=== PATIENT | female | born 1990 | race American Indian/Alaskan Native ===

== ENCOUNTER 2020-08-23 10:12 | Emergency (ER) | payer MEDICAID ==
--- NOTE | 2020-08-23 10:34 | EDM.PDOC ---
ED HPI GENERAL MEDICAL PROBLEM - General Chief Complaint: Lower Extremity Injury/Pain Stated Complaint: LT KNEE INJURY Time Seen by Provider: 08/23/20 10:32 - History of Present Illness INITIAL COMMENTS - FREE TEXT/NARRATIVE: 29-year-old female presents the emergency room with left knee pain. Yesterday the patient slipped on some ice. Her right leg went out and her left knee buckled inward she has medial pain. Patient has no prior history of knee problems. Patient denies . Patient denies any other complaint with this most unfortunate event. Patient has no significant medical problems. - Related Data Allergies Allergy/AdvReac Type Severity Reaction Status Date / Time No Known Allergies Allergy Verified 08/23/20 10:25 Home Meds: Home Meds Naproxen 500 mg PO BID #20 tablet 08/23/20 [Rx] Past Medical History - Past Health History Medical/Surgical History: Denies Medical/Surgical History Social & Family History - Family History Family Medical History: No Pertinent Family History - Tobacco Use Tobacco Use Status *Q: Never Tobacco User - Recreational Drug Use Recreational Drug Use: No Review of Systems - Review of Systems Review Of Systems: See Below Constitutional: Reports: No Symptoms Respiratory: Reports: No Symptoms Cardiovascular: Reports: No Symptoms GI/Abdominal: Reports: No Symptoms Genitourinary: Reports: No Symptoms ED EXAM, GENERAL - Physical Exam Exam: See Below Exam Limited By: No Limitations General Appearance: Alert, No Apparent Distress, Other (Her left knee is swollen medially and she has discomfort with any sort of motion with it) Respiratory/Chest: No Respiratory Distress, Lungs Clear, Normal Breath Sounds Cardiovascular: Regular Rate, Rhythm, No Edema, No Murmur Extremities: Other (Patient her left knee shows some swelling of the medial aspect of her knee she has joint line tenderness on the medial aspect examination of her knee is difficult because of swelling and discomfort at this point but gentle maneuvers distracted medial joint compartment cause significant discomfort. She has no pain along the lateral aspect of her knee as well as the posterior lateral portion of her knee. The patella itself does not appear to be tender. No other lower extremity abnormalities noted neurovascular status of the leg is normal.) Course - Vital Signs Last Recorded V/S: Last Vital Signs Temp 36.4 C 08/23/20 10:21 Pulse 77 08/23/20 10:21 Resp 16 12/24/20 10:21 BP 116/70 08/23/20 10:21 Pulse Ox 99 08/23/20 10:21 - Orders/Labs/Meds Orders: Active Orders 24 hr Category Date Time Status Durable Medical Equipment for Discharge [DME for Oth 08/23/20 12:46 Ordered Discharge] [COMM] Stat Meds: Medications Discontinued Medications Generic Name Dose Route Start Last Admin Trade Name Quan PRN Reason Stop Dose Admin Ketorolac Tromethamine 30 mg 08/23/20 12:48 08/23/20 13:01 Toradol IM 08/23/20 12:49 30 mg ONETIME ONE Administration - Re-Assessments/Exams Free Text/Narrative Re-Assessment/Exam: 08/23/20 13:05 X-rays of the of the knee is unremarkable. She has an area of hyperlucency next to the intercondylar prominence on the tibia medial aspect. I did discuss this with radiology they do not feel this is anything acute and report the x-ray is no acute fracture dislocation some soft tissue swelling. I discussed this with the patient we will give her a shot of Toradol for discomfort and then give her a prescription for Naprosyn 500 twice daily with meals to start tonight. She is placed in a knee immobilizer and given crutches. She will follow up with the hospital clinic after the first of the year. MRI evaluation may be indicated. Departure - Departure Time of Disposition: 13:07 Disposition: Home, Self-Care 01 Clinical Impression: Left knee injury - Discharge Information Instructions: How to Use a Knee Immobilizer, [id number], Crutch Use, Adult, [id number] Referrals: PCP,Not In Area [Primary Care Provider] - Forms: ED Department Discharge Additional Instructions: Return to the emergency room with any questions problems or worsening symptoms. Use the crutches and the knee immobilizer at all times until reevaluated. You have been started on Naprosyn. Do not take with ibuprofen. Take this 1 twice daily with your morning and evening meals. Follow-up in the hospital clinic shortly after the first of the year. Call on Thursday to schedule an appointment. [phone] Sepsis Event Note (ED) - Evaluation Sepsis Screening Result: No Definite Risk - Focused Exam Vital Signs: Vital Signs Temp Pulse Resp BP Pulse Ox 08/23/20 10:21 36.4 C 77 16 116/70 99 - My Orders Last 24 Hours: My Active Orders 08/23/20 12:46 Durable Medical Equipment for Discharge [DME for Discharge] [COMM] Stat - Assessment/Plan Last 24 Hours: My Active Orders 08/23/20 12:46 Durable Medical Equipment for Discharge [DME for Discharge] [COMM] Stat
--- NOTE | 2020-08-23 12:33 | CR ---
Left knee: AP, lateral and sunrise patellar views of the left knee were obtained. Comparison: No previous knee exam is available. Findings: Medial and lateral joint compartments are maintained in height. Slight soft tissue swelling is noted medially within the knee. No joint effusion is seen. No definite fracture or other bony abnormality is appreciated. Impression: 1. Soft tissue swelling medially. 2. No acute bony abnormality is appreciated. 3. If MCL injury needs to be excluded, MRI study is then recommended. Diagnostic code #2
[2020-08-23] MEDS ORDERED: Ketorolac 30 MG/ML SDV IM ONE (12:48)
== END 2020-08-23 13:37 | disposition home or self-care (01) ==
LOC: JD.ED 10:12
DX: S89.92XA Unspecified injury of left lower leg, initial encounter (principal); W00.0XXA Fall on same level due to ice and snow, initial encounter
CPT/HCPCS: 73562; 96372; 99283; J1885

== ENCOUNTER 2021-04-10 13:45 | Emergency (ER) | payer MEDICAID ==
[2021-04-10] MEDS ORDERED: Ketorolac 30 MG/ML SDV IM ONE (14:18)
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
--- NOTE | 2021-04-10 16:56 | CR ---
Chest and left ribs: Frontal view of the chest was obtained as well as 3 views of the left ribs. Comparison: No previous rib study or chest x-ray. Heart size and mediastinum are normal. Lungs are clear with no acute parenchymal change. No pneumothorax is seen. Mild scoliosis is noted within the spine. Rib fracture is seen within the left ninth rib which is slightly displaced. No additional rib abnormality is appreciated. Impression: 1. Left ninth rib fracture which is mildly displaced. 2. Slight scoliosis within the spine. 3. Nothing acute is otherwise seen on chest x-ray. Diagnostic code #3
== END 2021-04-10 16:13 | disposition home or self-care (01) ==
LOC: JD.ED 13:45
DX: S22.31XA Fracture of one rib, right side, initial encounter for closed fracture (principal); W18.39XA Other fall on same level, initial encounter
CPT/HCPCS: 71101; 96372; 99283; J1885

== ENCOUNTER 2021-05-17 11:22 | Emergency (ER) | payer MEDICAID ==
--- NOTE | 2021-05-17 11:58 | EDM.PDOC ---
ED HPI GENERAL MEDICAL PROBLEM - General Chief Complaint: General Stated Complaint: FATIGUE,DIZZY Time Seen by Provider: 05/17/21 11:34 Source of Information: Reports: Patient History Limitations: Reports: No Limitations - History of Present Illness INITIAL COMMENTS - FREE TEXT/NARRATIVE: 30-year-old female presents the emergency department with complaints of fever, chills, nausea, vomiting, fatigue, generalized weakness, dizziness, and loss of sense of taste and smell that started last evening. Patient states that one of her coworkers tested positive for Covid and she developed the symptoms last night and was told by her employer to come into the hospital to be tested. She states she did have her Covid vaccinations with the last 1 being within the last couple of months she does not remember the specific date and she believes it was the [employer] vaccine. She states she is otherwise healthy. Prior to last evening she had been feeling well. - Related Data Allergies Allergy/AdvReac Type Severity Reaction Status Date / Time No Known Allergies Allergy Verified 05/17/21 11:35 Home Meds: Home Meds Hydrocodone/Acetaminophen [HYDROcodone-Acetaminophen 5-325 MG] 1 each PO Q6H PRN #30 tablet 04/10/21 [Rx] Orphenadrine [Norflex] 100 mg PO BID PRN #20 tab 04/10/21 [Rx] Ondansetron [Zofran ODT] 4 mg PO Q6H PRN #12 tab.dis 05/17/21 [Rx] Past Medical History - Past Health History Medical/Surgical History: Denies Medical/Surgical History Social & Family History - Family History Family Medical History: No Pertinent Family History - Tobacco Use Tobacco Use Status *Q: Never Tobacco User - Caffeine Use Caffeine Use: Reports: None - Recreational Drug Use Recreational Drug Use: No ED ROS GENERAL - Review of Systems Review Of Systems: Comprehensive ROS is negative, except as noted in HPI. ED EXAM, GENERAL - Physical Exam Exam: See Below Exam Limited By: No Limitations General Appearance: Alert, WD/WN, No Apparent Distress Ears: Normal External Exam, Hearing Grossly Normal Nose: Normal Inspection Throat/Mouth: Normal Inspection, Normal Lips, Normal Voice, No Airway Compromise Head: Atraumatic Neck: Normal Inspection, Supple Respiratory/Chest: No Respiratory Distress, Lungs Clear, Normal Breath Sounds, No Accessory Muscle Use, Chest Non-Tender Cardiovascular: Normal Peripheral Pulses, Regular Rate, Rhythm, No Edema, No Murmur Peripheral Pulses: 2+: Radial (L), Radial (R) GI/Abdominal: Normal Bowel Sounds, Soft, Non-Tender, No Distention (Female) Exam: Deferred Rectal (Female) Exam: Deferred Back Exam: Normal Inspection Extremities: Normal Inspection Neurological: Alert, Oriented, Normal Cognition Psychiatric: Normal Affect, Normal Mood Skin Exam: Warm, Dry, Intact, Normal Color, No Rash Lymphatic: No Adenopathy Course - Vital Signs Text/Narrative:: As stated above, patient presents with Covid type symptoms and reports that she was exposed to a coworker who tested positive for Covid and was instructed by her employer to be tested. She is hemodynamically stable at the time of my exam and physical assessment is completely unremarkable. I have ordered for Covid swab to be completed. Last Recorded V/S: Last Vital Signs Temp 98.1 F 05/17/21 11:32 Pulse 67 05/17/21 11:32 Resp 16 05/17/21 11:32 BP 131/84 05/17/21 11:32 Pulse Ox 98 05/17/21 11:32 - Orders/Labs/Meds Labs: Laboratory Tests 05/17/21 Range/Units 11:32 SARS-CoV-2 RNA (FAN) Negative (NEGATIVE) - Re-Assessments/Exams Free Text/Narrative Re-Assessment/Exam: 05/17/21 13:10 Patient's Covid test is negative. She will be discharged home with recommendations that she quarantine for the next 10 days. She may get retested in about a week's time as it may be too early to obtain a positive test result. Departure - Departure Time of Disposition: 13:16 Disposition: Home, Self-Care 01 Condition: Good Clinical Impression: Viral infection - Discharge Information Prescriptions: Ondansetron [Zofran ODT] 4 mg PO Q6H PRN #12 tab.dis PRN Reason: Nausea/Vomiting Referrals: PCP,None [Primary Care Provider] - Forms: ED Department Discharge, ED Return to Work/School Form Additional Instructions: You were seen in the emergency department today with Covid type symptoms that started last evening. Covid test today was negative however as discussed, it could be too early to obtain a positive result. Recommend that you go home and rest and drink plenty of fluids. You should quarantine for the next 10 days. Should you continue to have symptoms in 4 to 5 days time recommend you be retested at any of the Covid clinics in [facility] or with [facility] which provide free Covid tests. I have sent a prescription for a nausea medication called Jameel to your pharmacy. You may take [address] it under your tongue and allow it to dissolve and then wait 30 minutes prior to eating or drinking anything. You can take this medication every 6 hours as needed for nausea and vomiting. May take Tylenol or ibuprofen per label instructions for headache, fever and body aches. Sepsis Event Note (ED) - Focused Exam Vital Signs: Vital Signs Temp Pulse Resp BP Pulse Ox 05/17/21 11:32 98.1 F 67 16 131/84 98
== END 2021-05-17 13:37 | disposition home or self-care (01) ==
LOC: JD.ED 11:22
DX: B34.9 Viral infection, unspecified (principal); Z20.822 Contact with and (suspected) exposure to COVID-19
CPT/HCPCS: 99283; 99284; U0002